=== PATIENT | female | born 1990 | race Caucasian/White ===

== ENCOUNTER → 2021-05-22 | Emergency (ER) | payer OTHER ==
[2021-05-22 08:30] LABS: HEMOGLOBIN 15.1 gm/dl (12.3-15.3); RED BLOOD COUNT 4.78 M/UL (4.00-5.10); WHITE BLOOD COUNT 10.5 K/UL (4.5-11.0)
[2021-05-22 09:02] LABS: BUN/CREATININE RATIO 19 (0-10)
== END | disposition home or self-care (01) ==
LOC: ER1 06:06
PROVIDERS: Nurse Practitioner
DX: O03.9 Complete or unspecified spontaneous abortion without complication (principal); Z86.16 Personal history of COVID-19; F17.210 Nicotine dependence, cigarettes, uncomplicated; Z3A.10 10 weeks gestation of pregnancy
CPT/HCPCS: 80053; 81001; 84702; 85025; 85610; 99284